=== PATIENT | female | born 2000 | race Caucasian/White ===

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

== ENCOUNTER 2021-05-13 16:30 | Inpatient (IN) | payer OTHER ==
[~2021-05-13] VITALS: Ht 149.9 cm; Wt 70.3 kg
[~2021-05-13 16:30] MED LIST changes: +PRENATAL VITAM1 EAC8 PO
[2021-05-13 17:04] LABS: RED BLOOD COUNT 4.37 M/UL (4.00-5.10); WHITE BLOOD COUNT 12.6 K/UL (4.5-11.0)
[2021-05-13] MEDS ORDERED: PRENATAL VITAM1 EAC3 PO (17:23)
[2021-05-14] MEDS ORDERED: IBUPROFEN600 MG PO (11:13)
[2021-05-14] MEDS ORDERED: DOCUSATE SODIU100 MG PO (11:13)
[2021-05-15 05:32] LABS: HEMOGLOBIN 9.9 gm/dl (12.3-15.3)
== END 2021-05-15 15:00 | disposition home or self-care (01) | DRG 807 ==
LOC: GENOP 16:30 → OB 16:54
PROVIDERS: Obstetrics & Gynecology; ADMIT Obstetrics & Gynecology
PROC: 4A1HXCZ Monitoring of Products of Conception, Cardiac Rate, External Approach (ICD-10-PCS; 2021-05-13)
PROC: 10E0XZZ Delivery of Products of Conception, External Approach (ICD-10-PCS; principal; 2021-05-14)
PROC: 10907ZC Drainage of Amniotic Fluid, Therapeutic from Products of Conception, Via Natural or Artificial Opening (ICD-10-PCS; 2021-05-14)
PROC: 3E033VJ Introduction of Other Hormone into Peripheral Vein, Percutaneous Approach (ICD-10-PCS; 2021-05-14)
DX: O99.344 Other mental disorders complicating childbirth (principal); Z37.0 Single live birth; F41.9 Anxiety disorder, unspecified; F32.9 Major depressive disorder, single episode, unspecified; Z3A.39 39 weeks gestation of pregnancy; Z20.822 Contact with and (suspected) exposure to COVID-19
CPT/HCPCS: 36415; 81001; 82800; 85014; 85018; 85025; J2590

== ENCOUNTER 2022-02-24 10:48 | Emergency (ER) | payer OTHER ==
[~2022-02-24 10:48] MED LIST changes: +DOCUSATE SODIU100 MG PO; +PRENATAL VITAM1 EAC3 PO
[2022-02-24 11:39] LABS: HEMOGLOBIN 14.4 gm/dl (12.3-15.3); RED BLOOD COUNT 5.09 M/UL (4.00-5.10); WHITE BLOOD COUNT 14.4 K/UL (4.5-11.0)
[2022-02-24 12:09] LABS: BUN/CREATININE RATIO 31 (0-10)
[2022-02-24] MEDS ORDERED: DICLEGIS DR 101 EACH PO (14:49)
== END 2022-02-24 15:13 | disposition home or self-care (01) ==
LOC: ER1 10:48
PROVIDERS: Physician Assistant Medical
DX: R11.2 Nausea with vomiting, unspecified (principal); R19.7 Diarrhea, unspecified; R10.9 Unspecified abdominal pain; Z88.1 Allergy status to other antibiotic agents
CPT/HCPCS: 80053; 81001; 83690; 85025; 96374; 96376; 99284; J2405